=== PATIENT | female | born 1970 | race Caucasian/White ===

== ENCOUNTER 2018-10-20 08:34 | Emergency (ER) | payer SELFPAY ==
--- NOTE | 2018-10-20 09:33 | RADIOLOGY REPORT (SQ) ---
EXAM DESCRIPTION: FOOT LEFT COMPLETE COMPLETED DATE/TIME: 10/20/2018 9:08 am REASON FOR STUDY: left foot pain after kicking a cinder block COMPARISON: None. NUMBER OF VIEWS: Three views. TECHNIQUE: AP, lateral and oblique radiographic images acquired of the left foot. LIMITATIONS: None. FINDINGS: MINERALIZATION: Normal. BONES: No acute fracture or dislocation. No worrisome bone lesions. Large plantar and Achilles calc aneal spurs. JOINTS: No effusions. SOFT TISSUES: No soft tissue swelling. No foreign body. OTHER: No other significant finding. IMPRESSION: NEGATIVE STUDY OF THE LEFT FOOT. NO RADIOGRAPHIC EVIDENCE OF ACUTE INJURY. TECHNICAL DOCUMENTATION: JOB ID: [id number] [employer]- All Rights Reserved Reading location - IP/workstation name: [email or web address]
--- NOTE | 2018-10-20 11:19 | ER Document Report ---
ED Extremity Problem, Lower - General Chief Complaint: Foot Injury Stated Complaint: FOOT PAIN Time Seen by Provider: 10/20/18 10:51 Primary Care Provider: DERRICK SCHMIDT MD [ACTIVE STAFF] - Follow up as needed ANSHU HAMMER NP [NURSE PRACTITIONER] - Follow up as needed Notes: 48-year-old female with is and diabetic neuropathy presents to the emergency department for "stubbing my toe "yesterday while wearing flip-flops and hitting it on a cinder block. She states that she was unable to walk with a normal gait but was able to bear weight on it. She attempted to sleep it off and woke up this morning with a swollen left foot and her family encouraged her to come to the emergency department. She denies any fevers or chills, any bluish discoloration of the foot, shortness of breath, chest pain, nausea, vomiting, numbness or tingling of her left foot, ankle or knee pain. No other complaints TRAVEL OUTSIDE OF THE [place] IN LAST 30 DAYS: No - Related Data Allergies/Adverse Reactions: No Known Allergies Allergy (Verified 10/20/18 08:40) Past Medical History - Social History Smoking Status: Unknown if Ever Smoked Family History: Reviewed & Not Pertinent Patient has suicidal ideation: No Patient has homicidal ideation: No Endocrine Medical History: Reports: Hx Diabetes Mellitus Type 2, Hx Hypothyroidism Renal/ Medical History: Reports: Hx Ovarian Cysts - PCOS. Denies: Hx Peritoneal Dialysis Past Surgical History: Reports: Hx Section, Hx Tonsillectomy - Immunizations Immunizations up to date: Yes Hx Diphtheria, Pertussis, Tetanus Vaccination: Yes - 2010 Physical Exam - Vital signs Vitals: Temp Pulse Resp BP Pulse Ox 98.1 F 75 16 133/74 H 98 10/20/18 08:53 10/20/18 08:53 10/20/18 08:53 10/20/18 08:53 10/20/18 08:53 - Notes Notes: PHYSICAL EXAMINATION: Reviewed vital signs and charting by RN GENERAL: Alert, interacts well. No acute distress. HEAD: Normocephalic, atraumatic. EYES: Pupils equal, round. Extraocular movements intact. ENT: Oral mucosa moist LUNGS: Clear to auscultation bilaterally, no wheezes, rales, or rhonchi. No respiratory distress. HEART: Regular rate and rhythm. No murmur EXTREMITIES: Moves all 4 extremities spontaneously. Tenderness to palpation along the fourth tarsal bone, edema of the left foot, no erythema or ecchymosis, dorsalis pedis and posterior tibialis pulses palpated, Brisk cap refill less than 2 seconds PSYCH: Normal affect, normal mood. SKIN: Warm, dry, normal turgor. No rashes or lesions noted. Course - Re-evaluation Re-evalutation: 10/20/18 19:52 X-ray negative for fracture occasion, or Lisfranc deformity. Patient with tenderness to palpation and edema. Plan is to give her an Ba wrap and employ rice treatment. Patient is safe and stable for discharge and agrees with plan. - Vital Signs Vital signs: Temp Pulse Resp BP Pulse Ox 97.9 F 66 16 120/82 98 10/20/18 11:48 10/20/18 11:48 10/20/18 11:48 10/20/18 11:48 10/20/18 11:48 Procedures - Immobilization Left Foot Immobilizer type: Ba wrap Performed by: RN Post-Proc Neuro Vasc Exam: Normal Alignment checked and good: Yes Discharge - Discharge Clinical Impression: Foot injury Qualifiers: Encounter type: initial encounter Laterality: left Qualified Code(s): S99.922A - Unspecified injury of left foot, initial encounter Condition: Good Disposition: HOME, SELF-CARE Additional Instructions: You are seen in the emergency department this morning for a foot injury. X-ray did not show any dislocation or break. This most likely a soft tissue injury after stubbing her toe very hard. We have provided you with an ankle stirrup that will help provide some compression. You should employ RICE treatment: Rest, ice, compression, elevation. Please take Motrin 600 mg every 6 hours [id number] with food or milk for the at least the next 3-5 days. I have also given you a referral for orthopedics that you can follow-up with if you do not start seeing improvement in the next 5-7 days. If your foot or toes start to turn blue, it becomes numb, starts turning black, or you have any other concerns please merely return to the emergency department. Referrals: DERRICK SCHMIDT MD [ACTIVE STAFF] - Follow up as needed ANSHU HAMMER NP [NURSE PRACTITIONER] - Follow up as needed
[2018-10-20 11:49] VITALS: BP 120/82
== END 2018-10-20 12:00 | disposition home or self-care (01) ==
LOC: ER 08:34
DX: S99.922A Unspecified injury of left foot, initial encounter (principal); W22.8XXA Striking against or struck by other objects, initial encounter; E11.40 Type 2 diabetes mellitus with diabetic neuropathy, unspecified
CPT/HCPCS: 99283; L1902

== ENCOUNTER 2018-11-08 18:38 | Emergency (ER) | payer SELFPAY ==
[2018-11-08 18:46] VITALS: BP 132/76
[2018-11-08] MEDS ORDERED: HYDROCODONE/ACETAMINOPHEN 10-325 MG TABLET PO ONE (19:00)
--- NOTE | 2018-11-08 19:45 | ER Document Report ---
HPI - HPI Patient complains to provider of: BL lower ankle pain Time Seen by Provider: 11/08/18 18:55 Pain Level: 5 Context: Patient is an otherwise healthy 48-year-old female presents to the emergency department chief complaint right ankle pain. Patient states she was attempting to get off of the ladder and missed a step. States she fell approximately 3 feet inverting her right ankle. Patient states she did land onto her left knee as well. She is denying hitting her head, neck or back, or LOC, or vomiting. Patient is denying any urinary or bowel incontinence, denies urinary retention. Past medical history: Diabetes, Chronic back pain medications: Metformin, Lantus, BuSpar, Meloxicam Allergies: None - REPRODUCTIVE Reproductive: DENIES: : Past Medical History - General Information source: Patient - Social History Smoking Status: Never Smoker Chew tobacco use (# tins/day): No Frequency of alcohol use: None Drug Abuse: None, Prescription drugs Family History: Reviewed & Not Pertinent Patient has suicidal ideation: No Patient has homicidal ideation: No Endocrine Medical History: Reports: Hx Diabetes Mellitus Type 2, Hx Hypothyroidism Renal/ Medical History: Reports: Hx Ovarian Cysts - PCOS. Denies: Hx Peritoneal Dialysis Past Surgical History: Reports: Hx Section, Hx Hysterectomy, Hx Tonsillectomy - Immunizations Immunizations up to date: Yes Hx Diphtheria, Pertussis, Tetanus Vaccination: Yes - 2010 [facility] Provider Document - CONSTITUTIONAL Agree With Documented VS: Yes Notes: GENERAL: Alert, interacts well. No acute distress. HEAD: Normocephalic, atraumatic. EYES: Pupils equal, round, and reactive to light. Extraocular movements intact. ENT: Oral mucosa moist, tongue midline. Nares patent, no nasal septal hematoma, TM's intact, no hemotympanum noted bilaterally. NECK: Full range of motion. Supple. Trachea midline. LUNGS: Clear to auscultation bilaterally, no wheezes, rales, or rhonchi. No respiratory distress. HEART: Regular rate and rhythm. No murmur ABDOMEN: Soft, non-tender. Non-distended. Bowel sounds present in all 4 quadrants. EXTREMITIES: Moves all 4 extremities spontaneously. normal radial and dorsalis pedis pulses bilaterally. No cyanosis. Swelling, ecchymosis noted right lateral malleolus. Pain upon palpation left malleolus. Pain upon palpation left knee. No obvious trauma noted to left lower extremity. Valgus, varus, anterior draw and elicit no pain left knee. Only upon palpation of the patella elicits pain. BACK: no cervical, thoracic, lumbar midline tenderness. No saddle anesthesia, normal distal neurovascular exam. NEUROLOGICAL: Alert and oriented x3. Normal speech. cranial nerves II through XII grossly intact PSYCH: Normal affect, normal mood. SKIN: Warm, dry, normal turgor. No rashes or lesions noted. - INFECTION CONTROL TRAVEL OUTSIDE OF THE [place] IN LAST 30 DAYS: No Course - Re-evaluation Re-evalutation: 11/08/18 20:35 Patient's x-ray shows an age-indeterminate dorsal talonavicular avulsion fracture of the right foot. Due to patient having significant right and left malleolus swelling radiating to her entire ankle I will immobilize in a posterior short leg. Discussed following up with orthopedics. Discussed that this may be an old fracture and the splint is not needed due to her pain and tenderness in her entire right ankle I will immobilized to be sure. Discussed close follow-up with orthopedics and return precautions. Patient stable for discharge. - Vital Signs Vital signs: Temp Pulse Resp BP Pulse Ox 97.7 F 91 20 132/76 H 99 11/08/18 18:45 11/08/18 18:45 11/08/18 18:45 11/08/18 18:45 11/08/18 18:45 Procedures - Immobilization right ankle Pre-Proc Neuro Vasc Exam: Normal Immobilizer type: Short Leg Posterior Performed by: Provider assisted Post-Proc Neuro Vasc Exam: Normal Alignment checked and good: Yes Discharge - Discharge Clinical Impression: Avulsion fracture of ankle Qualifiers: Encounter type: initial encounter Fracture type: closed Laterality: right Qualified Code(s): S82.891A - Other fracture of right lower leg, initial encounter for closed fracture Condition: Stable Disposition: HOME, SELF-CARE Instructions: Avulsion Fracture of the Ankle ([facility]) Additional Instructions: As we discussed you have been seen and treated in the emergency department for an avulsion fracture of your right ankle. As we discussed to the radiologist says this may be an old fracture. Due to the location of your pain I would like to immobilize your right ankle in case this is a new fracture. I will provide phone numbers for you to follow-up with orthopedics. Please take [id number] Tylenol Motrin for generalized pain. Please return to the emergency room should you have any other concerning symptoms. X-rays of your left knee and ankle were negative. Forms: Return to Work Referrals: BRITT VALADEZ MD [ACTIVE STAFF] - Follow up as needed [facility] [Provider Group] - Follow up as needed
--- NOTE | 2018-11-08 20:25 | RADIOLOGY REPORT (SQ) ---
EXAM DESCRIPTION: RadLex: XR ANKLE 3 VIEWS BILATERAL Views: 3 views of each ankle CLINICAL HISTORY: 48 years Female, pain/fall/swelling COMPARISON: None. FINDINGS: Left: Alignment is anatomic. There are prominent plantar and Achilles calcaneal spurs. No acute fracture. Right: Alignment is anatomic. There are small ossific densities dorsal to the talus and navicular on both sides of the talonavicular joint, but no cortical disruption. These are consistent with age-indeterminate avulsion fractures. There is a well-corticated ossific density distal to the lateral malleolus. No evidence for acute fracture of the distal tibia or fibula. Prominent plantar and Achilles calcaneal spurs are noted. No hyperdense foreign bodies. IMPRESSION: 1. Age-indeterminate dorsal talonavicular avulsion fractures of the right foot. 2. No definite acute fractures.
--- NOTE | 2018-11-08 20:32 | RADIOLOGY REPORT (SQ) ---
EXAM DESCRIPTION: RadLex: XR KNEE 4 OR MORE VIEWS Views: 4 CLINICAL HISTORY: 48 years Female, pain. Fall from ladder COMPARISON: None. FINDINGS: Negative for acute fracture, dislocation, or radiopaque foreign body. No joint effusion. There is mild reactive osteophyte formation at the superior and inferior margin of the patella. IMPRESSION: 1. No acute findings.
== END 2018-11-08 21:03 | disposition home or self-care (01) ==
LOC: ER 18:38
DX: S82.891A Other fracture of right lower leg, initial encounter for closed fracture (principal); M25.572 Pain in left ankle and joints of left foot; W11.XXXA Fall on and from ladder, initial encounter; E11.9 Type 2 diabetes mellitus without complications; E03.9 Hypothyroidism, unspecified; Z90.710 Acquired absence of both cervix and uterus; Z79.84 Long term (current) use of oral hypoglycemic drugs
CPT/HCPCS: 99283